=== PATIENT | female | born 1965 | race Two or more races ===

== ENCOUNTER → 2021-11-15 | Emergency (ER) | payer OTHER ==
[~2021-11-15] VITALS: Ht 157.5 cm; Wt 90.7 kg
[~2021-11-15] MED LIST: IBUP-1957 PO; KETOROLAC TROMETHAMINE INJ 30 MG/ML VIAL IV ONE; KETOROLAC TROMETHAMINE INJ 30 MG/ML VIAL ONE; MORPHINE SULFATE INJ 2 MG/ML DISP.SYRIN IV ONE; MORPHINE SULFATE INJ 2 MG/ML DISP.SYRIN ONE
--- NOTE | 2021-11-15 15:20 | NUR ---
PT BIBS C/O LOWER ABDOMINAL PAIN 10 S/P FALL YESTURDAY. PT IS A/O X4,CONNEDTED TO MONITOR.
[2021-11-15 15:50] LABS: BASOPHILS # (AUTO) 0.1 K/uL (0.0-0.2); EOSINOPHILS % (AUTO) 1.7 % (0.0-6.0); HEMATOCRIT 41 % (33-45); HEMOGLOBIN 13.5 g/dL (11.5-14.8); LYMPHOCYTES # (AUTO) 1.7 K/uL (0.8-4.8); LYMPHOCYTES % (AUTO) 21.9 % (20.0-44.0); MEAN CORPUSCULAR HGB CONC 33 g/dl (31.0-36.0); MEAN CORPUSCULAR VOLUME 90 fL (82-100); MONOCYTES # (AUTO) 0.4 K/uL (0.1-1.30); MONOCYTES % (AUTO) 5.4 % (2.0-12.0); NEUTROPHILS # (AUTO) 5.6 K/uL (1.8-8.9); PLATELET COUNT (AUTO) 297 K/uL (150-450); RED BLOOD CELL COUNT(AUTO) 4.54 MIL/uL (4.0-5.2)
[2021-11-15 15:57] LABS: CALCIUM, SERUM 9.5 mg/dL (8.5-10.1); CREATININE 0.8 mg/dL (0.6-1.3); POTASSIUM 4.6 mmol/L (3.5-5.1)
[2021-11-15 16:03] LABS: ALBUMIN 3.3 g/dL (3.4-5.0); BILIRUBIN,TOTAL 0.3 mg/dL (0.2-1.0); TOTAL PROTEIN, SERUM 7.5 g/dL (6.4-8.2)
--- NOTE | 2021-11-15 17:37 | NUR ---
Patient discharged to home in stable condition. RX,Written and verbal after care instructions given. Patient verbalizes understanding of instruction.Patient discharged to home in stable condition. Written and verbal after care instructions given. Patient verbalizes understanding of instruction.
[2021-11-15 17:40] VITALS: BP 124/88
== END | disposition home or self-care (01) ==
LOC: ER 15:10
DX: R10.9 Unspecified abdominal pain (principal); J44.9 Chronic obstructive pulmonary disease, unspecified; Z98.890 Other specified postprocedural states; Z79.1 Long term (current) use of non-steroidal anti-inflammatories (NSAID)
CPT/HCPCS: 36415; 74176; 80048; 80076; 83605; 83690; 85025; 96374; 96375; 99284; J1885; J2270

== ENCOUNTER 2021-12-12 15:47 | Emergency (ER) | payer OTHER ==
[~2021-12-12] VITALS: Ht 154.9 cm; Wt 104.3 kg
[~2021-12-12 15:47] MED LIST changes: -KETOROLAC TROMETHAMINE INJ 30 MG/ML VIAL IV ONE; -KETOROLAC TROMETHAMINE INJ 30 MG/ML VIAL ONE; -MORPHINE SULFATE INJ 2 MG/ML DISP.SYRIN IV ONE; -MORPHINE SULFATE INJ 2 MG/ML DISP.SYRIN ONE
[2021-12-12 15:59] VITALS: BP 133/73
[2021-12-12] MEDS ORDERED: ALBUTEROL FS 2.5 MG/3 ML VIAL.NEB NEB ONE (16:30)
[2021-12-12] MEDS ORDERED: predniSONE 20 MG TABLET PO ONE (16:30)
[2021-12-12] MEDS ORDERED: IPRATROPIUM NEB FS 0.5 MG/2.5 ML AMPUL.NEB NEB ONE (16:30)
[2021-12-12] MEDS ORDERED: predniSONE 20 MG TABLET ONE (16:31)
[2021-12-12] MEDS ORDERED: ALBUTEROL FS 2.5 MG/3 ML VIAL.NEB ONE (16:37)
[2021-12-12] MEDS ORDERED: IPRATROPIUM NEB FS 0.5 MG/2.5 ML AMPUL.NEB ONE (16:37)
--- NOTE | 2021-12-12 16:41 | NUR ---
RESPIRATORY THERAPIST AT BEDSIDE.
[2021-12-12] MEDS ORDERED: ALBU8.5H8 INH (19:41)
[2021-12-12] MEDS ORDERED: PRED20TA PO (19:41)
== END 2021-12-12 19:46 | disposition home or self-care (01) ==
LOC: ER 15:50
DX: J45.901 Unspecified asthma with (acute) exacerbation (principal); J45.909 Unspecified asthma, uncomplicated; J44.9 Chronic obstructive pulmonary disease, unspecified; Z79.899 Other long term (current) drug therapy
CPT/HCPCS: 71045; 93005; 94640; 99283; J7512

== ENCOUNTER 2022-03-10 12:11 | Emergency (ER) | payer OTHER ==
[~2022-03-10] VITALS: Ht 154.9 cm; Wt 113.9 kg
[~2022-03-10 12:11] MED LIST changes: +ALBU8.5H8 INH; +PRED20TA PO
--- NOTE | 2022-03-10 12:15 | NUR ---
RECIVED PT 56 YRS FEMALE CAME FROM HOME walking in c/o chest pain strted at 1000 am today with nummbness on lt side of face and numbness on lt leg and feet no weekness pt fallow command
--- NOTE | 2022-03-10 12:20 | NUR ---
INSERTED ANG CATHETER G 18 ON LT AC BLOOD DROW AND SENT TO LAB
--- NOTE | 2022-03-10 12:25 | NUR ---
EDEN PONCE AT BED SIDE SPOOK WITH PT
--- NOTE | 2022-03-10 12:47 | NUR ---
TO CT SCAN OF HEAD WITH IV CONTRAST AMIE VIA FELICIA
--- NOTE | 2022-03-10 12:48 | NUR ---
SUBMITTED [employer] REQUEST ConnectID: [id number]
--- NOTE | 2022-03-10 12:50 | NUR ---
NEUROLOGIST WINDOW CLEANER IS . CALL FOR ANY QUESTIONS
[2022-03-10] MEDS ORDERED: IV NS 0.9% 250 ML IV ONE (12:53)
[2022-03-10] MEDS ORDERED: IOHEXOL-350 100 ML VIAL IV ONE (12:53)
[2022-03-10] MEDS ORDERED: MORPHINE SULFATE INJ 2 MG/ML DISP.SYRIN IV ONE ×2 (13:00)
--- NOTE | 2022-03-10 13:00 | NUR ---
DAVONTE REILLY SENT TO LAB
[2022-03-10 13:01] LABS: BASOPHILS # (AUTO) 0.1 K/uL (0.0-0.2); BASOPHILS % (AUTO) 0.8 % (0.0-2.0); EOSINOPHILS % (AUTO) 2.8 % (0.0-6.0); HEMATOCRIT 41 % (33-45); HEMOGLOBIN 13.5 g/dL (11.5-14.8); LYMPHOCYTES # (AUTO) 2.3 K/uL (0.8-4.8); LYMPHOCYTES % (AUTO) 32.7 % (20.0-44.0); MEAN CORPUSCULAR HGB CONC 33 g/dl (31.0-36.0); MEAN CORPUSCULAR VOLUME 92 fL (82-100); MONOCYTES # (AUTO) 0.6 K/uL (0.1-1.30); NEUTROPHILS % (AUTO) 55.7 % (43.0-81.0); PLATELET COUNT (AUTO) 307 K/uL (150-450); RED BLOOD CELL COUNT(AUTO) 4.46 MIL/uL (4.0-5.2); WHITE BLOOD COUNT (AUTO) 7.2 K/uL (4.3-11.0)
[2022-03-10 13:02] LABS: CALCIUM, SERUM 9.5 mg/dL (8.5-10.1); CARBON DIOXIDE 28 mmol/L (21-32); CHLORIDE 106 mmol/L (98-107); CREATININE 0.7 mg/dL (0.6-1.3); GLUCOSE 96 mg/dL (74-106); POTASSIUM 3.8 mmol/L (3.5-5.1); SODIUM SERUM 143 mmol/L (136-145); UREA NITROGEN, BLOOD 12 mg/dL (7-18)
[2022-03-10 13:07] LABS: ALANINE AMINOTRANSFERASE 41 U/L (12-78); ALBUMIN 3.5 g/dL (3.4-5.0); ALKALINE PHOSPHATASE 64 U/L (46-116); ASPARTATE AMINOTRANSFERASE 19 U/L (15-37); BILIRUBIN,DIRECT 0.1 mg/dL (0.0-0.2); BILIRUBIN,TOTAL 0.3 mg/dL (0.2-1.0); TOTAL PROTEIN, SERUM 7.6 g/dL (6.4-8.2)
--- NOTE | 2022-03-10 13:14 | NUR ---
CALLED [facility] AND INFORMED THEM THAT PT IS BACK FROM [place]
--- NOTE | 2022-03-10 13:20 | NUR ---
Manuel garcia in [facility] - 03/10/22 at 1340 by [email or web address] SEEN BY DR. EDEN GA WITH PT
[2022-03-10] MEDS ORDERED: MORPHINE SULFATE INJ 4 MG/ML DISP.SYRIN ONE (13:26)
[2022-03-10 13:27] LABS: CHOLESTEROL 311 mg/dL (<200); HDL CHOLESTEROL 52 mg/dL (40-60); LDL 215 mg/dL (0-99); TRIGLYCERIDES 291 mg/dL (30-150)
--- NOTE | 2022-03-10 13:46 | NUR ---
NEUROLOGIST ON REMOTE SCREEN SPEAKING TO THE PATIENT.
--- NOTE | 2022-03-10 13:48 | NUR ---
NEUROLOGIST ON THE PHONE WITH DR. HARMON.
--- NOTE | 2022-03-10 13:58 | NUR ---
MOVE SHEET SUBMITTED.
--- NOTE | 2022-03-10 14:57 | NUR ---
DINESES CHEST PAIN AT THIS TIME NO SOB
[2022-03-10] MEDS ORDERED: ASPIRIN 325 MG TABLET PO ONE (15:00)
[2022-03-10] MEDS ORDERED: diphenhydrAMINE HCL 50 MG/ML VIAL IV ONE (15:00)
[2022-03-10] MEDS ORDERED: diphenhydrAMINE HCL 50 MG/ML VIAL ONE (15:02)
[2022-03-10] MEDS ORDERED: ASPIRIN 325 MG TABLET ONE (15:03)
--- NOTE | 2022-03-10 15:11 | NUR ---
PEER TO PEER WITH DR. AVILES FROM [facility]
--- NOTE | 2022-03-10 16:45 | NUR ---
RESTING AT THIS TIME NO WEEKNESS NO CHANGE IN MENTALE STATES
--- NOTE | 2022-03-10 16:58 | NUR ---
[facility] () room 616-B number for report [phone]. [facility] [phone].
[2022-03-10 17:02] LABS: BILIRUBIN,URINE NEGATIVE (NEGATIVE); COLOR,URINE YELLOW (YELLOW); LEUKOCYTE ESTERASE ,URINE NEGATIVE (NEGATIVE); NITRITE, URINE NEGATIVE (NEGATIVE); PROTEIN,URINE NEGATIVE (NEGATIVE); UGLUCOSE NEGATIVE (NEGATIVE); UROBILINOGEN,URINE 0.2 EU/dL (0.2)
--- NOTE | 2022-03-10 17:27 | NUR ---
[facility] ETA 1900.
--- NOTE | 2022-03-10 18:01 | NUR ---
TRANSFER TO [facility] HAND OFF TO DHRUV ALMONTE RN ROOM [facility]
[2022-03-10 18:10] VITALS: BP 147/73
--- NOTE | 2022-03-10 18:20 | NUR ---
TRANSFER TO [facility] VIA [facility]
== END 2022-03-10 18:47 | disposition short-term general hospital (02) ==
LOC: ER 12:12
DX: R20.0 Anesthesia of skin (principal); Z20.822 Contact with and (suspected) exposure to COVID-19; J44.9 Chronic obstructive pulmonary disease, unspecified
CPT/HCPCS: 99285; 96374; 70496; 71045; 96375; 87426; 80061; 93005; 85025; 80048; 80076; 36415; 84484 ×2; 85730; 86850; 82962; 80307; 81003; 70450; J1200; J2270; J7050; Q9967; C9803; 70498-TC

== ENCOUNTER 2023-04-02 14:30 | Emergency (ER) | payer OTHER ==
[~2023-04-02] VITALS: Ht 154.9 cm; Wt 90.7 kg
[2023-04-02] MEDS ORDERED: SUMATRIPTAN SUCCINATE 6 MG/0.5 ML VIAL SQ ONE ×2 (15:13→15:30)
[2023-04-02] MEDS ORDERED: MECLIZINE HCL 25 MG TABLET ONE (15:13)
[2023-04-02] MEDS ORDERED: ONDANSETRON 4 MG TAB.RAPDIS ONE (15:14)
[2023-04-02] MEDS ORDERED: ONDANSETRON 4 MG TAB.RAPDIS PO ONE (15:30)
[2023-04-02] MEDS ORDERED: MECLIZINE HCL 12.5 MG TABLET PO ONE (15:30)
[2023-04-02] MEDS ORDERED: SUMA100T PO (16:23)
[2023-04-02 17:05] VITALS: BP 137/85; TEMP 98.2; O2SAT 95
== END 2023-04-02 17:09 | disposition home or self-care (01) ==
LOC: ER 14:31
DX: G43.909 Migraine, unspecified, not intractable, without status migrainosus (principal); J45.909 Unspecified asthma, uncomplicated
CPT/HCPCS: 99283; 96372; J8597; J3030; Q0162

== ENCOUNTER 2023-05-17 19:52 | Emergency (ER) | payer OTHER ==
[~2023-05-17] VITALS: Ht 154.9 cm; Wt 90.7 kg
[~2023-05-17 19:52] MED LIST changes: +ACET325T53 PO; +ALBU2.5V13 NEB; -ALBU8.5H8 INH; +ALBUT2 NEB; +BACL20TA PO; +BUDE10.2 INH; +DICL50TA9 PO; +GUAI600T53 PO; -IBUP-1957 PO; +IPRA0.2S9 NEB; +METH4TAB17 PO; +PANT40TA49 PO; +TRAM50TA2 PO
[2023-05-17] MEDS ORDERED: IV NS 0.9% 1,000 ML BAG IV ONE ×2 (21:00→22:00)
[2023-05-17 21:02] LABS: BASOPHILS # (AUTO) 0.1 K/uL (0.0-0.2); BASOPHILS % (AUTO) 0.8 % (0.0-2.0); EOSINOPHILS # (AUTO) 0.2 K/uL (0.0-0.7); EOSINOPHILS % (AUTO) 1.5 % (0.0-6.0); HEMATOCRIT 44 % (33-45); HEMOGLOBIN 14.4 g/dL (11.5-14.8); LYMPHOCYTES # (AUTO) 2.3 K/uL (0.8-4.8); LYMPHOCYTES % (AUTO) 20.9 % (20.0-44.0); MEAN CORPUSCULAR HEMOGLOBIN 31 PG (26.0-33.0); MEAN CORPUSCULAR HGB CONC 33 g/dl (31.0-36.0); MEAN CORPUSCULAR VOLUME 95 fL (82-100); MONOCYTES % (AUTO) 8.9 % (2.0-12.0); NEUTROPHILS # (AUTO) 7.4 K/uL (1.8-8.9); NEUTROPHILS % (AUTO) 67.9 % (43.0-81.0); PLATELET COUNT (AUTO) 283 K/uL (150-450); RED BLOOD CELL COUNT(AUTO) 4.64 MIL/uL (4.0-5.2); RED CELL DISTRIBUTION WIDTH 15.2 % (11.5-15.0); WHITE BLOOD COUNT (AUTO) 10.9 K/uL (4.3-11.0)
[2023-05-17 21:32] LABS: APPEARANCE,URINE CLEAR (CLEAR); BILIRUBIN,URINE NEGATIVE (NEGATIVE); BLOOD, URINE TRACE-INTA Ery/uL (NEGATIVE); COLOR,URINE YELLOW (YELLOW); KETONES,URINE NEGATIVE (NEGATIVE); LEUKOCYTE ESTERASE ,URINE NEGATIVE (NEGATIVE); NITRITE, URINE NEGATIVE (NEGATIVE); PROTEIN,URINE NEGATIVE (NEGATIVE); UGLUCOSE NEGATIVE (NEGATIVE); UROBILINOGEN,URINE 0.2 EU/dL (0.2)
[2023-05-17 21:33] LABS: ADD URINE CULTURE NO; BACTERIA,URINE RARE /HPF (None Seen); SQUAMOUS EPITHELIAL CELL,UR 21-50 /HPF (None Seen); WBC,URINE 0-2 /HPF (0-3)
[2023-05-17 21:34] LABS: MUCUS,URINE Many /LPF (None Seen)
[2023-05-17] MEDS ORDERED: KETOROLAC TROMETHAMINE INJ 30 MG/ML VIAL IV ONE (22:00)
[2023-05-17] MEDS ORDERED: ONDANSETRON HCL/PF 4 MG/2 ML VIAL IV ONE (22:00)
[2023-05-17] MEDS ORDERED: KETOROLAC TROMETHAMINE 15 MG/ML VIAL ONE (22:03)
[2023-05-17 22:04] LABS: ALBUMIN 3.4 g/dL (3.4-5.0); BILIRUBIN,DIRECT 0.1 mg/dL (0.0-0.2); BILIRUBIN,TOTAL 0.3 mg/dL (0.2-1.0); CALCIUM, SERUM 9.9 mg/dL (8.5-10.1); CREATININE 0.9 mg/dL (0.6-1.3); TOTAL PROTEIN, SERUM 7.4 g/dL (6.4-8.2)
[2023-05-17] MEDS ORDERED: ONDANSETRON HCL/PF 4 MG/2 ML VIAL ONE (22:04)
[2023-05-17] MEDS ORDERED: IBUP-1955 PO (23:05)
[2023-05-17] MEDS ORDERED: ONDA4TAB5 PO (23:06)
[2023-05-18 00:22] VITALS: BP 122/89; TEMP 98; O2SAT 97
[2023-05-18 01:53] LABS: BAND % (MANUAL) 1 % (0.0-5.0); EOSINOPHILS % (MANUAL) 1 % (0-4); LYMPHOCYTES % (MANUAL) 30 % (16-48); MONOCYTES % (MANUAL) 8 % (0-11.0); MYELOCYTES % 4 % (0-0); NEUTROPHILS % (MANUAL) 56 (42-76); PLATELET ESTIMATE ADEQUATE
== END 2023-05-18 00:25 | disposition home or self-care (01) ==
LOC: ER 19:53
DX: R10.9 Unspecified abdominal pain (principal); J45.909 Unspecified asthma, uncomplicated; Z79.899 Other long term (current) drug therapy
CPT/HCPCS: 99285; 74176; 96374; 71045; 96361; 96375; 93005; 85025; 80048; 83690; 80076; 81001; 36415; 84484; 85007; J2405; J7030 ×2; J1885

== ENCOUNTER 2023-06-19 15:55 | Emergency (ER) | payer OTHER ==
[~2023-06-19] VITALS: Ht 154.9 cm; Wt 90.3 kg
[~2023-06-19 15:55] MED LIST changes: +IBUP-1955 PO; +ONDA4TAB5 PO
[2023-06-19] MEDS ORDERED: predniSONE 20 MG TABLET ONE (17:38)
[2023-06-19] MEDS: predniSONE 20 MG TABLET PO ONE (17:41)
[2023-06-19] MEDS ORDERED: ALBUTEROL FS 2.5 MG/3 ML VIAL.NEB ONE (17:49)
[2023-06-19] MEDS ORDERED: IPRATROPIUM NEB FS 0.5 MG/2.5 ML AMPUL.NEB ONE (17:49)
[2023-06-19] MEDS: ALBUTEROL FS 2.5 MG/3 ML VIAL.NEB NEB ONE (17:53)
[2023-06-19] MEDS: IPRATROPIUM NEB FS 0.5 MG/2.5 ML AMPUL.NEB NEB ONE (17:53)
[2023-06-19 17:54] VITALS: O2SAT 96
[2023-06-19 18:11] VITALS: O2SAT 96
[2023-06-19] MEDS ORDERED: BUDE10.2 INH (18:38)
[2023-06-19] MEDS ORDERED: GUAI600T53 PO (18:38)
[2023-06-19 18:52] VITALS: BP 135/87; TEMP 98; O2SAT 97
== END 2023-06-19 18:47 | disposition home or self-care (01) ==
LOC: ER 16:02
DX: J45.901 Unspecified asthma with (acute) exacerbation (principal); Z79.51 Long term (current) use of inhaled steroids; Z79.899 Other long term (current) drug therapy
CPT/HCPCS: 99283; 71045; 93005; 94640; J7512